=== PATIENT | male | born 1965 | race Caucasian/White ===

== ENCOUNTER 2016-04-28 12:53 | Emergency (ER) | payer MEDICARE ==
--- NOTE | 2016-04-28 13:41 | ER Document Report ---
ED General - General Chief Complaint: Ankle Injury Stated Complaint: ANKLE PAIN Mode of Arrival: Medic Information source: Patient Notes: 51-year-old male presents with complaints of ankle pain after she tripped last night. Patient denies any neurological deficits was able to ambulate initially but now admits that it hurts. Tetanus is up-to-date TRAVEL OUTSIDE OF THE [place] IN LAST 30 DAYS: No - HPI Onset: Just prior to arrival Onset/Duration: Sudden Quality of pain: Achy Severity: Mild Pain Level: 1 Associated symptoms: Other Exacerbated by: Movement, Walking Relieved by: Denies Similar symptoms previously: No Recently seen / treated by doctor: No - Related Data Allergies/Adverse Reactions: hydrocodone bitartrate [From Vicodin] Allergy (Verified 04/28/16 12:54) Penicillins Allergy (Verified 04/28/16 12:54) Past Medical History - Social History Smoking Status: Never Smoker Cigarette use (# per day): No Chew tobacco use (# tins/day): No Smoking Education Provided: No Family History: Reviewed & Not Pertinent - Past Medical History Cardiac Medical History: Reports: Hx Heart Attack, Hx Hypercholesterolemia, Hx Hypertension Neurological Medical History: Reports: Hx Cerebrovascular Accident, Hx Seizures Endocrine Medical History: Reports: Hx Diabetes Mellitus Type 2 Psychiatric Medical History: Reports: Hx Depression Past Surgical History: Reports: Hx Cholecystectomy, Hx Oral Surgery, Hx Orthopedic Surgery - right knee, left foot, back - Immunizations Hx Diphtheria, Pertussis, Tetanus Vaccination: Yes Review of Systems - Review of Systems Notes: REVIEW OF SYSTEMS: CONSTITUTIONAL : Denies fever, chills, or sweats. Denies recent illness. EENT: Denies eye, ear, throat, or mouth pain or symptoms. Denies nasal or sinus congestion or discharge. Denies throat, tongue, or mouth swelling or difficulty swallowing. CARDIOVASCULAR: Denies chest pain. Denies palpitations or racing or irregular heart beat. Denies ankle edema. RESPIRATORY: Denies cough, cold, or chest congestion. Denies shortness of breath, difficulty breathing, or wheezing. GASTROINTESTINAL: Denies abdominal pain or distention. Denies nausea, vomiting , or diarrhea. Denies blood in vomitus, stools, or per rectum. Denies black, tarry stools. Denies constipation. GENITOURINARY: Denies difficulty urinating, painful urination, burning, frequency, blood in urine, or discharge. MUSCULOSKELETAL: Admits to right ankle pain SKIN: Denies rash, lesions or sores. HEMATOLOGIC : Denies easy bruising or bleeding. LYMPHATIC: Denies swollen, enlarged glands. NEUROLOGICAL: Denies confusion or altered mental status. Denies passing out or loss of consciousness. Denies dizziness or lightheadedness. Denies headache. Denies weakness or paralysis or loss of use of either side. Denies problems with gait or speech. Denies sensory loss, numbness, or tingling. Denies seizures. PSYCHIATRIC: Denies anxiety or stress. Denies depression, suicidal ideation, or homicidal ideation. ALL OTHER SYSTEMS REVIEWED AND NEGATIVE. Dictation was performed using [employer] voice recognition software PHYSICAL EXAMINATION: GENERAL: Well-appearing, well-nourished and in no acute distress. HEAD: Atraumatic, normocephalic. EYES: Pupils equal round extraocular movements intact, conjunctiva are normal. ENT: Nares patent NECK: Normal range of motion LUNGS: No respiratory distress Musculoskeletal: Normal range of motion NEUROLOGICAL: Normal speech, normal gait. PSYCH: Normal mood, normal affect. SKIN: Extremely superficial abrasion noted on the lateral malleolus of the right ankle there is no deformity no step-off no obvious other injuries Course - Re-evaluation Re-evalutation: 04/28/16 14:16 X-ray noted no acute abnormality patient is stable for discharge tetanus is up- to-date After performing a Medical Screening Examination, I estimate there is LOW risk for INTRACRANIAL HEMORRHAGE, UNSTABLE SPINE FRACTURE, CENTRAL CORD SYNDROME, CAUDA EQUINA, THORACIC AORTIC DISSECTION, PNEUMOTHORAX, PERFORATED BOWEL, RUPTURED ABDOMINAL AORTIC ANEURYSM, ACUTE TENDON RUPTURE, COMPARTMENT SYNDROME, or OPEN FRACTURE, thus I consider the discharge disposition reasonable. Also, there is no evidence or peritonitis, sepsis, or toxicity. The patient and I have discussed the diagnosis and risks, and we agree with discharging home to follow-up with their primary doctor with the understanding that symptoms and presentations can change. We also discussed returning to the Emergency Department immediately if new or worsening symptoms occur. We have discussed the symptoms which are most concerning (e.g., bloody stool, fever, changing or worsening pain, vomiting) that necessitate immediate return. - Diagnostic Test Radiology reviewed: Image reviewed, Reports reviewed - No acute abnormality Discharge - Discharge Clinical Impression: Skin abrasion Ankle injury Qualifiers: Encounter type: initial encounter Laterality: right Qualified Code(s): S99.911A - Unspecified injury of right ankle, initial encounter Condition: Stable Disposition: HOME, SELF-CARE Instructions: Sprained Ankle ([facility]) Referrals: MILADIS DE LEON MD [Primary Care Provider] - Follow up tomorrow
[2016-04-28 16:20] VITALS: BP 103/81
== END 2016-04-28 14:42 | disposition home or self-care (01) ==
LOC: ER 12:53
DX: S99.911A Unspecified injury of right ankle, initial encounter (principal); S90.511A Abrasion, right ankle, initial encounter; W18.40XA Slipping, tripping and stumbling without falling, unspecified, initial encounter; E78.00 Pure hypercholesterolemia, unspecified; I10 Essential (primary) hypertension; E11.9 Type 2 diabetes mellitus without complications; Z86.73 Personal history of transient ischemic attack (TIA), and cerebral infarction without residual deficits; Z88.6 Allergy status to analgesic agent; Z88.0 Allergy status to penicillin; Z90.49 Acquired absence of other specified parts of digestive tract; I25.2 Old myocardial infarction
CPT/HCPCS: 99283

== ENCOUNTER 2016-08-24 18:10 | Emergency (ER) | payer MEDICARE ==
--- NOTE | 2016-08-24 22:37 | ER Document Report ---
ED GI/ - General Stated Complaint: TESTICULAR PAIN Time Seen by Provider: 08/24/16 22:32 Mode of Arrival: Ambulatory Information source: Patient TRAVEL OUTSIDE OF THE [place] IN LAST 30 DAYS: No - HPI Notes: 08/25/16 00:40 This is a 51-year-old male with history of leukemia and diabetes who presents with left testicular pain for approximately 3 days. This started a couple hours after lifting a heavy mattress. He did not have immediate pain with this. It is sharp pain and is in the region of the left testicle. He feels some mild enlargement of it as well. Denies abdominal pain nausea vomiting dysuria hematuria flank or back discomfort with this. No penile discharge. Direct trauma as well. - Related Data Allergies/Adverse Reactions: hydrocodone bitartrate [From Vicodin] Allergy (Verified 04/28/16 12:54) Penicillins Allergy (Verified 04/28/16 12:54) Past Medical History - Social History Smoking Status: Unknown if Ever Smoked Drug Abuse: None Family History: Reviewed & Not Pertinent - Past Medical History Cardiac Medical History: Reports: Hx Heart Attack, Hx Hypercholesterolemia, Hx Hypertension Neurological Medical History: Reports: Hx Cerebrovascular Accident, Hx Seizures Endocrine Medical History: Reports: Hx Diabetes Mellitus Type 2 Renal/ Medical History: Denies: Hx Epididymitis, Hx Testicular Torsion Psychiatric Medical History: Reports: Hx Depression Past Surgical History: Reports: Hx Cholecystectomy, Hx Oral Surgery, Hx Orthopedic Surgery - right knee, left foot, back - Immunizations Hx Diphtheria, Pertussis, Tetanus Vaccination: Yes Review of Systems - Review of Systems -: Yes All other systems reviewed and negative Physical Exam - Vital signs Interpretation: Normal - Notes Notes: GENERAL: VS as per nursing doc. Well-appearing, well-nourished and in no acute distress. HEAD: Atraumatic, normocephalic. EYES: Sclera anicteric, no conjunctival injection or discharge. ENT: Moist mucous membranes. NECK: Supple LUNGS: Breath sounds clear to auscultation bilaterally and equal. No wheezes rales or rhonchi. HEART: Regular rate and rhythm without murmurs. ABDOMEN: Soft, non-tender. No penile discharge noted. Circumcised. No testicular tenderness or mass noted. Slight fullness bilaterally. There is tenderness with the patient standing and bearing down in the inguinal canal but there is no obvious hernia or bulging noted BACK: No CVA tenderness. EXTREMITIES: No edema. NEUROLOGICAL: Gait intact, no gross abnormality. PSYCH: Normal mood, normal affect. SKIN: Warm, dry, normal turgor, no lesions noted. Course - Re-evaluation Re-evalutation: 08/24/16 22:36 Due to computer downtime lab results are not in the chart. CBC is significant for a normal white count 9.3 otherwise normal. Urinalysis is pending. Patient is currently in ultrasound. 08/25/16 00:37 Urinalysis was essentially negative except for glucose. Recommended the patient check his glucose often and up with his primary care physician. He is currently on insulin. Ultrasound showed small bilateral hydroceles. Discussed light lifting with him for 1 week in follow-up, returning if he has increasing problems or develops a lump there at the time of examination he has tenderness at the inguinal canal but there is no sign of hernia. - Laboratory Result Diagrams: 08/24/16 20:15 Discharge - Discharge Clinical Impression: Testicle pain Condition: Good Disposition: HOME, SELF-CARE Additional Instructions: Light lifting for the next week or if causing pain. Use ibuprofen or Aleve for discomfort. Contact your physician for follow-up in the next 2-3 days.
[2016-08-24] MEDS ORDERED: OXYCODONE-ACETAMINOPHEN 5-325 MG TABLET PO ONE (23:41)
[2016-08-25] MEDS ORDERED: IBUPROFEN 800 MG TABLET PO ONE (01:52)
[2016-08-25 10:06] LABS: ABSOLUTE BASOPHILS # (AUTO) 0.1 10^3/uL (0.0-0.2); ABSOLUTE EOSINOPHILS # (AUTO) 0.2 10^3/uL (0.0-0.6); ABSOLUTE LYMPHOCYTES (AUTO) 3.6 10^3/uL (0.5-4.7); ABSOLUTE MONOCYTES (AUTO) 0.7 10^3/uL (0.1-1.4); ABSOLUTE NEUT (AUTO) 4.8 10^3/uL (1.7-8.2); BASOPHILS % (AUTO) 0.6 % (0-2); EOSINOPHILS % (AUTO) 2.4 % (0-6); HEMATOCRIT 48.4 % (37.9-51.0); HEMOGLOBIN 16.4 g/dL (13.5-17.0); HGB HCT DIFFERENCE 0.8; LYMPHOCYTES % (AUTO) 38.6 % (13-45); MEAN CORPUSCULAR HEMOGLOBIN 29.5 pg (27.0-33.4); MEAN CORPUSCULAR HGB CONC 33.8 g/dL (32.0-36.0); MEAN CORPUSCULAR VOLUME 87 fl (80-97); MONOCYTES % (AUTO) 7.2 % (3-13); RED BLOOD COUNT 5.55 10^6/uL (4.35-5.55); RED CELL DISTRIBUTION WIDTH 13.1 % (11.5-14.0); SEGMENTED NEUTROPHILS % (AUTO) 51.2 % (42-78); WHITE BLOOD COUNT 9.3 10^3/uL (4.0-10.5)
[2016-08-25 14:29] LABS: APPEARANCE,URINE CLEAR; BILIRUBIN,URINE NEGATIVE (NEGATIVE); GLUCOSE, URINE >=500 mg/dL (NEGATIVE); KETONES,URINE NEGATIVE (NEGATIVE); LEUKOCYTE ESTERASE,URINE NEGATIVE (NEGATIVE); NITRITE,URINE NEGATIVE (NEGATIVE); PROTEIN,URINE NEGATIVE (NEGATIVE); URINE SPECIFIC GRAVITY 1.027; UROBILINOGEN,URINE NEGATIVE mg/dL (<2.0)
== END 2016-08-25 01:16 | disposition home or self-care (01) ==
LOC: ER 18:10
DX: N50.812 Left testicular pain (principal); E78.00 Pure hypercholesterolemia, unspecified; I10 Essential (primary) hypertension; E11.9 Type 2 diabetes mellitus without complications; I25.2 Old myocardial infarction; Z88.0 Allergy status to penicillin; Z88.6 Allergy status to analgesic agent; Z79.4 Long term (current) use of insulin; Z86.73 Personal history of transient ischemic attack (TIA), and cerebral infarction without residual deficits; Z90.49 Acquired absence of other specified parts of digestive tract; Z85.6 Personal history of leukemia
CPT/HCPCS: 99284; 36415; 87086; 85025; 81001; 76870; 93976; A9270 ×2

== ENCOUNTER 2016-11-05 17:03 | Emergency (ER) | payer MEDICARE, MEDICAID ==
[2016-11-05] MEDS ORDERED: OXYCODONE-ACETAMINOPHEN 5-325 MG TABLET PO ONE (17:48)
--- NOTE | 2016-11-05 17:56 | ER Document Report ---
ED Headache - General Chief Complaint: Neck Problem Stated Complaint: NECK PAIN Time Seen by Provider: 11/05/16 17:36 Notes: 51 yo male with hx/o Leukemia, DM, CHF, epilepsy c/o acute onset of sharp, "electrical" pains in right side of head since last night. "shooting pains almost drop me to my knees". + dizziness with pain. no fever, no n/v, no chest pain or shortness of breath. no previous similar pain. no rash TRAVEL OUTSIDE OF THE [place] IN LAST 30 DAYS: No - HPI Onset: Yesterday Timing: Still present Quality of pain: Sharp Associated symptoms: Neck pain. denies: Nausea/vomiting, Stiff neck Similar symptoms previously: No - Related Data Allergies/Adverse Reactions: hydrocodone bitartrate [From Vicodin] Allergy (Verified 11/05/16 17:08) Penicillins Allergy (Verified 11/05/16 17:08) Past Medical History - General Information source: Patient - Social History Smoking Status: Current Every Day Smoker Cigarette use (# per day): Yes - 1ppd Frequency of alcohol use: None Drug Abuse: None Lives with: Spouse/Significant other Family History: Reviewed & Not Pertinent - Past Medical History Cardiac Medical History: Reports: Hx Heart Attack, Hx Hypercholesterolemia, Hx Hypertension Neurological Medical History: Reports: Hx Cerebrovascular Accident, Hx Seizures Endocrine Medical History: Reports: Hx Diabetes Mellitus Type 2 Renal/ Medical History: Denies: Hx Epididymitis, Hx Peritoneal Dialysis, Hx Testicular Torsion Psychiatric Medical History: Reports: Hx Depression Past Surgical History: Reports: Hx Cholecystectomy, Hx Oral Surgery, Hx Orthopedic Surgery - right knee, left foot, back - Immunizations Hx Diphtheria, Pertussis, Tetanus Vaccination: Yes Review of Systems - Review of Systems Constitutional: No symptoms reported EENT: No symptoms reported Cardiovascular: No symptoms reported Respiratory: No symptoms reported Gastrointestinal: No symptoms reported Genitourinary: No symptoms reported Male Genitourinary: No symptoms reported Musculoskeletal: No symptoms reported Skin: No symptoms reported Hematologic/Lymphatic: No symptoms reported Neurological/Psychological: See HPI Physical Exam - Vital signs Vitals: Temp Pulse Resp BP Pulse Ox 97.6 F 95 16 116/71 94 11/05/16 17:10 11/05/16 17:10 11/05/16 17:10 11/05/16 17:10 11/05/16 17:10 Interpretation: Normal - General General appearance: Appears well, Alert In distress: None - HEENT Head: Normocephalic, Atraumatic Eyes: Normal Conjunctiva: Normal Extraocular movements intact: Yes Pupils: PERRL Tympanic membrane: Normal Mucous membranes: Moist Pharynx: Normal Neck: Supple, Other - + right suboccipital trapezius tenderness. no cervical pain.. No: Lymphadenopathy, Meningismus - Respiratory Respiratory status: No respiratory distress Chest status: Nontender Breath sounds: Normal Chest palpation: Normal - Cardiovascular Rhythm: Regular Heart sounds: Normal auscultation Murmur: No - Abdominal Inspection: Normal Distension: No distension Bowel sounds: Normal Tenderness: Nontender Organomegaly: No organomegaly - Back Back: Normal, Nontender - Extremities General upper extremity: Normal inspection, Nontender, Normal color, Normal ROM , Normal temperature General lower extremity: Normal inspection, Nontender, Normal color, Normal ROM , Normal temperature, Normal weight bearing. No: Akosua's sign - Neurological Neuro grossly intact: Yes Cognition: Normal Orientation: AAOx4 Roseanne Coma Scale Eye Opening: Spontaneous [place] Coma Scale Verbal: Oriented Roseanne Coma Scale Motor: Obeys Commands [place] Coma Scale Total: 15 Speech: Normal Motor strength normal: LUE, RUE, LLE, RLE Sensory: Normal - Psychological Associated symptoms: Normal affect, Normal mood - Skin Skin Temperature: Warm Skin Moisture: Dry Skin Color: Normal Course - Re-evaluation Re-evalutation: 11/05/16 19:[address] negative. results reviewed with patient. low suspicion of stroke, TIA , meningitis. pt is neurologically intact and no focal deficits. will treat with short course of pain medication and close follow up with primary care. pt agreeable with plan and stable for discharge - Vital Signs Vital signs: Temp Pulse Resp BP Pulse Ox 97.6 F 95 16 116/71 94 11/05/16 17:10 11/05/16 17:10 11/05/16 17:10 11/05/16 17:10 11/05/16 17:10 Discharge - Discharge Clinical Impression: Headache Qualifiers: Headache type: unspecified Headache chronicity pattern: acute headache Intractability: not intractable Qualified Code(s): R51 - Headache Condition: Stable Disposition: HOME, SELF-CARE Instructions: Headache ([facility]), Oral Narcotic Medication ([facility]) Additional Instructions: Your head CT is negative today Take pain medication as needed and follow up with your primary care if pain persists Return to ER for any worsening Prescriptions: Oxycodone HCl/Acetaminophen [Percocet 5-325 mg Tablet] 1 tab PO ASDIR PRN #15 tablet PRN Reason:
--- NOTE | 2016-11-05 18:26 | RADIOLOGY REPORT (SQ) ---
EXAM DESCRIPTION: CT HEAD WITHOUT COMPLETED DATE/TIME: 11/05/2016 6:10 pm REASON FOR STUDY: pain in right side of head, hx Leukemia COMPARISON: None. TECHNIQUE: Axial images acquired through the brain without intravenous contrast. Images reviewed wi th bone, brain and subdural windows. Images stored on PACS. All CT scanners at this facility use dose modulation, iterative reconstruction, and/or weight based d osing when appropriate to reduce radiation dose to as low as reasonably achievable (ALARA). [facility]: Dose Right [facility]: CareDose [facility]: Dose Right [facility]: Teradose 4D [facility]: Lucidity ([employer]) RADIATION DOSE: Up-to-date CT equipment and radiation dose reduction techniques were employed. CTDIv ol: 64.6 mGy. DLP: 1163 mGy-cm. mGy. LIMITATIONS: None. FINDINGS: VENTRICLES: Normal size and contour. CEREBRUM: No masses. No hemorrhage. No midline shift. Normal cano/white matter differentiation. N o evidence for acute infarction. CEREBELLUM: No masses. No hemorrhage. No alteration of density. No evidence for acute infarction. EXTRAAXIAL SPACES: No fluid collections. No masses. ORBITS AND GLOBE: No intra- or extraconal masses. Normal contour of globe without masses. CALVARIUM: No fracture. PARANASAL SINUSES: No fluid or mucosal thickening. SOFT TISSUES: No mass or hematoma. OTHER: No other significant finding. IMPRESSION: NORMAL BRAIN CT WITHOUT CONTRAST. TECHNICAL DOCUMENTATION: JOB ID: [id number] Quality ID # [id number]: Final reports with documentation of one or more dose reduction techniques (e.g., Au tomated exposure control, adjustment of the mA and/or kV according to patient size, use of iterative reconstruction technique) 2010 [employer]- All Rights Reserved
[2016-11-05 22:15] VITALS: BP 113/72
== END 2016-11-05 19:52 | disposition home or self-care (01) ==
LOC: ER 17:03
DX: R51 Headache (principal); M54.2 Cervicalgia; R42 Dizziness and giddiness; F17.210 Nicotine dependence, cigarettes, uncomplicated
CPT/HCPCS: 99284; 70450; A9270

== ENCOUNTER 2016-12-29 15:00 | Observation (INO) | payer MEDICARE ==
--- NOTE | 2016-12-29 15:17 | ER Document Report ---
ED General - General Mode of Arrival: Ambulatory Information source: Patient TRAVEL OUTSIDE OF THE [place] IN LAST 30 DAYS: No <ROCAEL CAMPOVERDE - Last Filed: 12/29/16 17:32> <JEN NORRIS - Last Filed: 12/29/16 17:39> - General Stated Complaint: CHEST PAIN Time Seen by Provider: 12/29/16 15:09 Notes: Patient is a 51-year-old male that presents to the emergency department today with complaints of chest pain. Patient states his chest pain began today while cutting the grass. Patient describes this chest pain as a "piece of hot steel sticking through him". Patient states that he went inside into the air conditioning for approximately 10 minutes and the pain subsided. Patient states that he has had a similar pain for approximately 3 months but it seems to only be exertional. Patient complains of shortness of breath and lightheadedness. Patient denies any nausea, vomiting, or syncope. Patient had an MD in 2012. ( ROCAEL CAMPOVERDE) - Related Data Allergies/Adverse Reactions: hydrocodone bitartrate [From Vicodin] Allergy (Verified 11/05/16 17:08) Penicillins Allergy (Verified 11/05/16 17:08) Past Medical History - General Information source: Patient - Social History Smoking Status: Current Every Day Smoker Cigarette use (# per day): Yes Frequency of alcohol use: None Drug Abuse: None Lives with: Family Family History: Reviewed & Not Pertinent - Past Medical History Cardiac Medical History: Reports: Hx Heart Attack, Hx Hypercholesterolemia, Hx Hypertension Neurological Medical History: Reports: Hx Cerebrovascular Accident, Hx Seizures Endocrine Medical History: Reports: Hx Diabetes Mellitus Type 2 Psychiatric Medical History: Reports: Hx Depression Past Surgical History: Reports: Hx Cholecystectomy, Hx Oral Surgery, Hx Orthopedic Surgery - right knee, left foot, back - Immunizations Hx Diphtheria, Pertussis, Tetanus Vaccination: Yes <ROCAEL CAMPOVERDE - Last Filed: 12/29/16 17:32> Review of Systems - Review of Systems Constitutional: No symptoms reported EENT: No symptoms reported Cardiovascular: See HPI, Chest pain, Lightheaded. denies: Syncope Respiratory: See HPI, Short of breath Gastrointestinal: denies: Nausea, Vomiting Genitourinary: No symptoms reported Male Genitourinary: No symptoms reported Musculoskeletal: No symptoms reported Skin: No symptoms reported Hematologic/Lymphatic: No symptoms reported Neurological/Psychological: No symptoms reported -: Yes All other systems reviewed and negative <NIRALIROCAEL - Last Filed: 12/29/16 17:32> Physical Exam <ROCAEL CAMPOVERDE - Last Filed: 12/29/16 17:32> <JEN NORRIS - Last Filed: 12/29/16 17:39> - Vital signs Vitals: Resp 15 12/29/16 15:15 - Notes Notes: Physical Exam: General: Alert, appears well. HEENT: Normocephalic. Atraumatic. PERRL. Extraocular movements intact. Oropharynx clear. Neck: Supple. Non-tender. Respiratory: No respiratory distress. Coarse breath sounds bilaterally. Cardiovascular: Regular rate and rhythm. Abdominal: Epigastric tenderness with palpation. No distension. Normal Bowel Sounds. Back: Non-tender. No deformity or step off. Extremities: Moves all four extremities. Upper extremities: Normal inspection. Normal ROM. Lower extremities: Normal inspection. No edema. Normal ROM. Neurological: Normal cognition. AAOx4. Normal speech. Psychological: Normal affect. Normal Mood. Skin: Warm. Dry. Normal color. (ROCAEL CAMPOVERDE) Course - Laboratory Result Diagrams: 12/29/16 15:39 12/29/16 15:39 <ROCAEL CAMPOVERDE - Last Filed: 12/29/16 17:32> - Laboratory Result Diagrams: 12/29/16 15:39 12/29/16 15:39 - Diagnostic Test Radiology reviewed: Image reviewed, Reports reviewed - Per Dr. Cloud, no DVT. - EKG Interpretation by [facility] EKG shows normal: Sinus rhythm - Normal sinus rhythm, rate 96, inferior Q waves noted. Normal QRS duration. EKG appears consistent with February 12, 2016 EKG <JEN NORRIS - Last Filed: 12/29/16 17:39> - Re-evaluation Re-evalutation: 12/29/16 17:17 Patient currently pain-free. Dr. Morgan agrees to admit patient for chest pain rule out. (ROCAEL CAMPOVERDE) 12/29/16 15:24 Patient currently pain-free. Has Nitropaste on. No recent traumatic neck injury. (JEN NORRIS) - Vital Signs Vital signs: Temp Pulse Resp BP Pulse Ox 98 F 98 15 124/76 95 12/29/16 15:21 12/29/16 15:21 12/29/16 17:01 12/29/16 17:00 12/29/16 15:27 - Laboratory Laboratory results interpreted by me: 12/29/16 15:39 Sodium 135.4 L Glucose 286 H Discharge <ROCAEL CAMPOVERDE - Last Filed: 12/29/16 17:32> - Discharge Admitting Provider: Dr. Morgan Unit Admitted: Telemetry <JEN NORRIS - Last Filed: 12/29/16 17:39> - Discharge Clinical Impression: Chest pain, Hyperglycemia Clinical Impression: (Ruled Out): Cellulitis of right lower extremity Condition: Good Disposition: ADMITTED OBSERVATION Referrals: MILADIS DE LEON MD [Primary Care Provider] - Follow up as needed Scribe Attestation: 12/29/16 17:36 I personally performed the services described in the documentation, reviewed and edited the documentation which was dictated to the scribe in my presence, and it accurately records my words and actions. (JEN NORRIS) Scribe Documentation - Scribe Written by Sathishe:: Felice Camara, 12/29/2016 1731 acting as scribe for :: Yue <ROCAEL CAMPOVERDE - Last Filed: 12/29/16 17:32>
[2016-12-29 15:51] LABS: ABSOLUTE BASOPHILS # (AUTO) 0.1 10^3/uL (0.0-0.2); ABSOLUTE EOSINOPHILS # (AUTO) 0.2 10^3/uL (0.0-0.6); ABSOLUTE LYMPHOCYTES (AUTO) 2.3 10^3/uL (0.5-4.7); ABSOLUTE MONOCYTES (AUTO) 0.5 10^3/uL (0.1-1.4); ABSOLUTE NEUT (AUTO) 4.4 10^3/uL (1.7-8.2); EOSINOPHILS % (AUTO) 2.7 % (0-6); HEMATOCRIT 42.6 % (37.9-51.0); HEMOGLOBIN 15.3 g/dL (13.5-17.0); HGB HCT DIFFERENCE 3.3; LYMPHOCYTES % (AUTO) 31.2 % (13-45); MEAN CORPUSCULAR HEMOGLOBIN 30.7 pg (27.0-33.4); MEAN CORPUSCULAR VOLUME 85 fl (80-97); MONOCYTES % (AUTO) 6.8 % (3-13); RED BLOOD COUNT 4.99 10^6/uL (4.35-5.55); RED CELL DISTRIBUTION WIDTH 13.1 % (11.5-14.0); SEGMENTED NEUTROPHILS % (AUTO) 58.3 % (42-78); WHITE BLOOD COUNT 7.5 10^3/uL (4.0-10.5)
[2016-12-29 16:07] LABS: ALANINE AMINOTRANSFERASE 50 U/L (21-72); ALBUMIN 3.9 g/dL (3.5-5.0); ALKALINE PHOSPHATASE 63 U/L (38-126); ANION GAP 11 (5-19); ASPARTATE AMINO TRANSFERASE 27 U/L (17-59); BILIRUBIN,DIRECT 0.4 mg/dL (0.0-0.4); BILIRUBIN,TOTAL 0.4 mg/dL (0.2-1.3); BLOOD UREA NITROGEN 11 mg/dL (7-20); CALCIUM 9.6 mg/dL (8.4-10.2); CARBON DIOXIDE 23 mmol/L (22-30); CHLORIDE 101 mmol/L (98-107); CREATINE KINASE 86 U/L (55-170); CREATININE RESULT 0.61 mg/dL (0.52-1.25); GLUCOSE 286 mg/dL (75-110); SODIUM 135.4 mmol/L (137-145); TOTAL PROTEIN 6.3 g/dL (6.3-8.2)
[2016-12-29 16:18] LABS: CREATINE KINASE MB 0.88 ng/mL (<4.55); TROPONIN I 0.024 ng/mL
--- NOTE | 2016-12-29 16:47 | RADIOLOGY REPORT (SQ) ---
EXAM DESCRIPTION: CERV SP 4 OR 5 VIEWS COMPLETED DATE/TIME: 12/29/2016 4:11 pm REASON FOR STUDY: Pain, Neck Trauma COMPARISON: 12/24/2011 cervical spine plain films NUMBER OF VIEWS: Five views. TECHNIQUE: AP, lateral, obliques and odontoid radiographic images acquired of the cervical spine. LIMITATIONS: None. FINDINGS: MINERALIZATION: Normal. ALIGNMENT: Anatomic. VERTEBRAE: Vertebral bodies of normal height. DISCS: Very mild anterior osteophyte formation at C4-5, C5-6, and C6-7. No significant disc space lo ss of height. FORAMINA: Minimal bilateral foraminal narrowing at C4-5, and C5-6. LATERAL AND POSTERIOR ELEMENTS: Facets, lateral masses and spinous processes without significant find ings. HARDWARE: None in the spine. SOFT TISSUES: Carotid bifurcation calcifications. OTHER: No other significant finding. IMPRESSION: No acute changes TECHNICAL DOCUMENTATION: JOB ID: [id number] [employer]- All Rights Reserved
--- NOTE | 2016-12-29 16:47 | RADIOLOGY REPORT (SQ) ---
EXAM DESCRIPTION: CHEST PA/LAT COMPLETED DATE/TIME: 12/29/2016 4:11 pm REASON FOR STUDY: Pain, Neck Trauma COMPARISON: 02/12/2016 EXAM PARAMETERS: NUMBER OF VIEWS: two views TECHNIQUE: Digital Frontal and Lateral radiographic views of the chest acquired. RADIATION DOSE: NA LIMITATIONS: none FINDINGS: LUNGS AND PLEURA: No opacities, masses or pneumothorax. No pleural effusion. MEDIASTINUM AND HILAR STRUCTURES: No masses or contour abnormalities. HEART AND VASCULAR STRUCTURES: Heart normal size. No evidence for failure. BONES: No acute findings. HARDWARE: None in the chest. OTHER: No other significant finding. IMPRESSION: NO SIGNIFICANT RADIOGRAPHIC FINDING IN THE CHEST. TECHNICAL DOCUMENTATION: JOB ID: [id number] [employer]- All Rights Reserved
[2016-12-29] MEDS ORDERED: ACETAMINOPHEN 325 MG TABLET PO PRN (18:14)
[2016-12-29] MEDS ORDERED: ONDANSETRON HCL INJ/PF 4 MG/2 ML SDV IV PRN (18:20)
[2016-12-29] MEDS ORDERED: NITROGLYCERIN 0.4 MG/TAB 25 TAB/BOTTLE SL PRN (18:23)
[2016-12-29] MEDS ORDERED: DEXTROSE 50%-WATER 25 GM/50 ML DISP.SYRIN IV PRN ×2 (18:26)
[2016-12-29] MEDS ORDERED: DEXTROSE 40% GEL 15 GM TUBE PO PRN ×2 (18:26)
[2016-12-29] MEDS ORDERED: GLUCAGON,HUMAN RECOMB 1 MG INJ IM PRN (18:26)
--- NOTE | 2016-12-29 18:32 | EKG REPORT ---
SEVERITY:- ABNORMAL ECG - SINUS RHYTHM INFERIOR INFARCT, AGE INDETERMINATE : Confirmed by: Pradip Chapman MD 29-Dec-2016 18:31:56
--- NOTE | 2016-12-29 18:41 | PDOC H&P ---
History of Present Illness Admission Date/PCP: 12/29/16 18:17 MILADIS DE LEON MD Patient complains of: Chest pain History of Present Illness: JEN CHRIS is a 51 year old male, with diabetes mellitus as well as hypertension and hyperlipidemia and prior history of HI last stress test was about 3 years ago came to the emergency room because of 3 months of recurrent chest pain. Pain is located on the left side nonradiating with associated mild shortness of breath. There is no palpitation dizziness nor chills nor fever. Likewise there is no associated cough. No nausea or vomiting as well. It will occur mainly with activity. The patient will stop and eventually the discomfort will resolve. The pain is reproducible on the left chest wall. While doing yard work today, the pain recurred again and this time it was not relieved by rest, the ambulance was called, and was given nitroglycerin the pain started to ease off. The patient was then referred for admission. Past Medical History Past Medical History: Medication reconciliation pending verification from the patient's pharmacist. Cardiac Medical History: Reports: Myocardial Infarction, Hyperlipidema, Hypertension Neurological Medical History: Reports: Seizures Endocrine Medical History: Reports: Diabetes Mellitus Type 2 Psychiatric Medical History: Reports: Depression Past Surgical History Past Surgical History: Reports: Cholecystectomy, Orthopedic Surgery - right knee , left foot, back Social History Information Source: Patient Lives with: Family Smoking Status: Current Every Day Smoker Frequency of Alcohol Use: None Hx Recreational Drug Use: No Drugs: None Hx Prescription Drug Abuse: No Family History Family History: DM, Hypertension Parental Family History Reviewed: Yes Children Family History Reviewed: Yes Sibling(s) Family History Reviewed.: Yes Medication/Allergy Allergies/Adverse Reactions: hydrocodone bitartrate [From Vicodin] Allergy (Verified 11/05/16 17:08) Penicillins Allergy (Verified 11/05/16 17:08) Review of Systems Constitutional: ABSENT: chills, fever(s), headache(s), weight gain, weight loss Eyes: ABSENT: visual disturbances Ears: ABSENT: hearing changes Nose, Mouth, and Throat: ABSENT: mouth pain, sore throat Cardiovascular: PRESENT: chest pain. ABSENT: dyspnea on exertion, edema, orthropnea, palpitations Respiratory: PRESENT: dyspnea. ABSENT: cough, hemoptysis Gastrointestinal: ABSENT: abdominal pain, constipation, diarrhea, hematemesis, hematochezia, melena, nausea, vomiting Genitourinary: ABSENT: dysuria, hematuria Musculoskeletal: ABSENT: joint swelling Integumentary: ABSENT: rash, wounds Neurological: ABSENT: abnormal gait, abnormal speech, confusion, dizziness, focal weakness, syncope Psychiatric: ABSENT: anxiety, depression, homidical ideation, suicidal ideation Endocrine: ABSENT: cold intolerance, heat intolerance, polydipsia, polyphagia, polyuria Hematologic/Lymphatic: ABSENT: easy bleeding, easy bruising Physical Exam Vital Signs: Temp Pulse Resp BP Pulse Ox 98 F 98 14 162/96 H 95 12/29/16 15:21 12/29/16 15:21 12/29/16 17:31 12/29/16 17:31 12/29/16 15:27 General appearance: PRESENT: no acute distress, cooperative, other - Overweight Head exam: PRESENT: atraumatic, normocephalic Eye exam: PRESENT: conjunctiva pink, EOMI, PERRLA. ABSENT: scleral icterus Ear exam: PRESENT: normal external ear exam Mouth exam: PRESENT: moist, tongue midline Neck exam: ABSENT: carotid bruit, JVD, lymphadenopathy, thyromegaly Respiratory exam: PRESENT: clear to auscultation harsh. ABSENT: rales, rhonchi, wheezes Cardiovascular exam: PRESENT: RRR. ABSENT: diastolic murmur, rubs, systolic murmur Pulses: PRESENT: normal dorsalis pedis pul Vascular exam: PRESENT: normal capillary refill GI/Abdominal exam: PRESENT: normal bowel sounds, soft. ABSENT: distended, guarding, mass, organolmegaly, rebound, tenderness Rectal exam: PRESENT: deferred Extremities exam: PRESENT: full ROM, other - Trace pretibial edema. ABSENT: calf tenderness, clubbing Neurological exam: PRESENT: alert, awake, oriented to person, oriented to place , oriented to time, oriented to situation, CN II-XII grossly intact. ABSENT: motor sensory deficit Psychiatric exam: PRESENT: appropriate affect, normal mood. ABSENT: homicidal ideation, suicidal ideation Skin exam: PRESENT: dry, intact, warm. ABSENT: cyanosis, rash Results Impressions: Cervical Spine X-Ray 12/29/16 15:17 IMPRESSION: No acute changes Chest X-Ray 12/29/16 15:17 IMPRESSION: NO SIGNIFICANT RADIOGRAPHIC FINDING IN THE CHEST. Assessment & Plan - Diagnosis (1) Chest pain Qualifiers: Chest pain type: unspecified Qualified Code(s): R07.9 - Chest pain, unspecified Is this a current diagnosis for this admission?: Yes (2) Coronary artery disease Qualifiers: Coronary Disease-Associated Artery/Lesion type: [place] artery [place] vs. transplanted heart: [place] heart Associated angina: angina presence unspecified Qualified Code(s): I25.10 - Atherosclerotic heart disease of [place] coronary artery without angina pectoris Is this a current diagnosis for this admission?: Yes (3) Essential hypertension Is this a current diagnosis for this admission?: Yes (4) Hyperlipidemia Qualifiers: Hyperlipidemia type: unspecified Qualified Code(s): E78.5 - Hyperlipidemia , unspecified Is this a current diagnosis for this admission?: Yes (5) Diabetes mellitus type 2 in obese Is this a current diagnosis for this admission?: Yes (6) History of depression Is this a current diagnosis for this admission?: Yes (7) History of stroke Is this a current diagnosis for this admission?: Yes (8) History of seizure Is this a current diagnosis for this admission?: Yes - Time Time Spent: 50 to 70 Minutes - Plan Summary Plan Summary: The patient will be admitted to observation. Serial cardiac enzymes will be obtained and if negative we will proceed with a stress test. We will consult cardiology for further evaluation. In the meantime I will put the patient on aspirin and Plavix. I will likewise begin nitroglycerin. Supplemental oxygen will be given and DVT prophylaxis with Lovenox will be placed. Further testing depends on initial evaluation as outlined above.
--- NOTE | 2016-12-29 19:56 | PDOC CONSULTATION ---
Consultation Consult Date: 12/29/16 Attending physician:: TITO CONNELLY Consult reason:: Chest pain History of Present Illness Admission Date/PCP: 12/29/16 18:17 MILADIS DE LEON MD Patient complains of: Chest pain History of Present Illness: JEN CHRIS is a 51 year old male, with diabetes mellitus as well as hypertension and hyperlipidemia and prior history of NC, last stress test was about 3 years ago came to the emergency room because of 3 months of recurrent chest pain. Pain is located on the left side nonradiating with associated mild shortness of breath. There is no palpitation dizziness nor chills nor fever. Likewise there is no associated cough. No nausea or vomiting as well. It will occur mainly with activity. The patient will stop and eventually the discomfort will resolve. The pain is reproducible on the left chest wall. While doing yard work today, the pain recurred again and this time it was not relieved by rest, the ambulance was called, and was given nitroglycerin the pain started to ease off. The patient was then referred for admission. This history was reviewed, confirmed. Patient gives questionable history of leukemia having had chemotherapy in the past. Patient denied any history of blood clots in the legs are in the lungs. Patient did not want to identify a surrogate decision maker but could contact his live-in girlfriend. Past Medical History Cardiac Medical History: Reports: Myocardial Infarction, Hyperlipidema, Hypertension Neurological Medical History: Reports: Seizures Endocrine Medical History: Reports: Diabetes Mellitus Type 2 Psychiatric Medical History: Reports: Depression Past Surgical History Past Surgical History: Reports: Cholecystectomy, Orthopedic Surgery - right knee , left foot, back Social History Information Source: Patient Lives with: Family Smoking Status: Current Every Day Smoker Frequency of Alcohol Use: None Hx Recreational Drug Use: No Drugs: None Hx Prescription Drug Abuse: No - Advance Directive Resuscitation Status: Full Code Surrogate healthcare decision maker:: Patient children will be surrogate decision-maker although he did not want to identify any of them Family History Family History: DM, Hypertension Parental Family History Reviewed: Yes Children Family History Reviewed: Yes Sibling(s) Family History Reviewed.: Yes Medication/Allergy Home Medications: Aspirin [Aspirin 81 mg Chewable Tablet] 81 mg PO DAILY 12/29/16 Atorvastatin Calcium [Lipitor 10 mg Tablet] 10 mg PO DAILY 12/29/16 Carvedilol [Coreg 6.25 mg Tablet] 6.25 mg PO Q12 12/29/16 Divalproex Sodium [Depakote ER] 500 mg PO DAILY 12/29/16 Escitalopram Oxalate [Lexapro 10 mg Tablet] 10 mg PO DAILY 12/29/16 Insulin Detemir [Levemir Flextouch] 18 unit SQ QHS 12/29/16 Insulin Lispro [Humalog Kwikpen U-100] 6 unit SQ DAILY 12/29/16 Isosorbide Mononitrate [Isosorbide Mononitrate ER] 30 mg PO DAILY 12/29/16 Lacosamide [Vimpat] 200 mg PO Q12 12/29/16 Lisinopril [Prinivil 10 mg Tablet] 10 mg PO DAILY 12/29/16 Nitroglycerin [Nitrostat 0.4 mg (1/150 Gr) Tabs 25/Bottle] 1 tab SL Q5MP PRN Apixaban [Eliquis 5 mg Tablet] 5 mg PO Q12 #60 tablet 12/30/16 Allergies/Adverse Reactions: hydrocodone bitartrate [From Vicodin] Allergy (Verified 11/05/16 17:08) Penicillins Allergy (Verified 11/05/16 17:08) Review of Systems Review of Systems: Please see history of present illness and past medical history as wall. Constitutional: No fever or chills reported. Head : No recent chronic headaches, recent head injury. Eyes: No recent eye pain, diplopia, redness, discharge, acute visual changes. Ears: No recent chronic ear pain, acute hearing loss, ear discharge. Oral cavity: No recent ulcerations, bleeding, oral cavity discomfort. Neck: No recent acute neck pain reported. Hematologic: No recent easy bruising or bleeding or hematologic malignancy reported. Lymphatic: No recent lymphatic malignancy, chronic lymphadenopathy reported yet Cardiovascular system review: See history of present illness. Respiratory system review: No recent chronic cough, hemoptysis, blood clots in the lungs reported. Mild Shortness of breath on exertion Gastrointestinal system review: Negative for any recent acute or chronic abdominal pain, hematemesis, melena, recent change in bowel habits. Genitourinary system review: No recent acute or chronic hematuria, flank pain, UTI etc. reported. Skin system review: Negative for any recent abnormal bruising, no rash, no pruritus reported. Neurologic: No prior history of strokes, mini strokes, seizure disorder. Claims tremors of the left hand. Psychologic: No history of major psychosis or major depression reported. Musculoskeletal: Minor aches and pains reported. No acute joint swelling reported. Describes significant right hip and right knee arthritis. Patient walks with a cane Endocrine: No recent polyuria, polydipsia, recent heat or cold intolerance. Physical Exam Vital Signs: Temp Pulse Resp BP Pulse Ox 98 F 98 15 129/92 H 95 12/29/16 15:21 12/29/16 15:21 12/29/16 19:07 12/29/16 19:07 12/29/16 15:27 Exam: GENERAL: well-nourished and in no acute distress. Alert and oriented x3 HEAD: Atraumatic, normocephalic. EYES: Pupils equal round and reactive to light, extraocular movements intact, sclera anicteric, conjunctiva are normal. ENT: TMs normal, nares patent, oropharynx clear without exudates. Moist mucous membranes. No oral ulcerations or bleeding gums noted NECK: supple without lymphadenopathy. Trachea is central. No cervical or axillary lymphadenopathy noted. Carotids are 2+, JVD WNL LUNGS: Respiration seems nonlabored, no significant accessory muscle action noted. Breath sounds clear to auscultation bilaterally and equal noted. No wheezes rales or rhonchi noted. No significant dullness noted on percussion. CHEST: Palpation of the chest wall shows significant chest wall tenderness. No other significant abnormalities noted. HEART: [place] [employer], No PSH, 1/6 MARCO aortic area, 1/6 siddiqui systolic murmur mitral area, no rubs, no gallops. ABDOMEN: Soft, no significant tenderness appreciated, normoactive bowel sounds. No guarding, no rebound. No rigidity noted . No masses appreciated. EXTREMITIES: Pedal pulses are 1-2+, no calf tenderness noted. No clubbing or cyanosis.trace to 1+ pedal edema noted NEUROLOGICAL: Focused neurological exam showed no significant neurologic deficit. Normal speech, no focal weakness appreciated. PSYCH: Normal mood, normal affect. Judgment and insight within normal limits. SKIN: No significant ecchymosis, rash, ulcerations or signs of pruritus noted. MUSCULOSKELETAL EXAM: No significant joint swelling noted. Results EKG Comments: Borderline Q waves inferior leads suggestive of possible prior inferior myocardial infarction Impressions: Cervical Spine X-Ray 12/29/16 15:17 IMPRESSION: No acute changes Chest X-Ray 12/29/16 15:17 IMPRESSION: NO SIGNIFICANT RADIOGRAPHIC FINDING IN THE CHEST. Assessment & Plan - Diagnosis (1) Chest pain Qualifiers: Chest pain type: unspecified Qualified Code(s): R07.9 - Chest pain, unspecified Is this a current diagnosis for this admission?: Yes (2) Coronary artery disease Qualifiers: Coronary Disease-Associated Artery/Lesion type: [place] artery [place] vs. transplanted heart: [place] heart Associated angina: angina presence unspecified Qualified Code(s): I25.10 - Atherosclerotic heart disease of [place] coronary artery without angina pectoris Is this a current diagnosis for this admission?: Yes (3) Diabetes mellitus type 2 in obese Is this a current diagnosis for this admission?: Yes (4) Essential hypertension Is this a current diagnosis for this admission?: Yes (5) HLD (hyperlipidemia) Qualifiers: Hyperlipidemia type: unspecified Qualified Code(s): E78.5 - Hyperlipidemia , unspecified Is this a current diagnosis for this admission?: Yes - Notes Notes: Nuclear stress test and 2D echo. Patient's medication reviewed. Agree with current management plans. Chest pain: Patient has some typical and atypical features of chest pain. Cardiac enzymes so far has been negative. Electrocardiogram did not show any definitive ST segment changes. Multiple differential diagnoses exist in this patient. In descending order of probability this includes underlying coronary artery disease, gastroesophageal reflux, musculoskeletal pain, referred pain from elsewhere, anxiety panic disorder etc.Patient has significant cardiac risk factors, which indicates that there is a intermediate probability of chest discomfort coming from underlying CAD. Feel that it would need to be evaluated further. Discussed evaluation to assess this. In this regard risk benefits of nuclear stress test and other alternative processes were discussed in detail. The patient prefers to undergo nuclear stress test. The small risk of radiation , myocardial infarction, , cardiac arrhythmias, respiratory distress etc. were discussed. Patient understood the risks and gave informed consent. Nuclear stress test was therefore scheduled. For risk evaluation, patient is also being scheduled for a 2-D echocardiogram. Patient questions were answered. CAD: Patient describes prior history of myocardial infarction. To be evaluated further with a nuclear stress test and a 2D echocardiogram. Diabetes: Recommend good control of blood sugar. However should avoid any hypoglycemia. Patient being expertly managed by primary care MMario Hypertension: Reasonably well controlled. Blood pressure goal in this patient is 135/85 or less. This was discussed with the patient. Currently blood pressure under reasonable control. Better medication for this patient are CINDY inhibitor/ARB/beta lev etc. discussed side effects of uncontrolled hypertension and also severe hypotension. Hyperlipidemia: LDL goal is less than 70. Recommend statin therapy at least intermediate or high dose, of high potency status. Periodic lipid panel and liver panel is indicated. Patient to report any significant muscle discomfort or other side effects. - Time Time Spent: 50 to 70 Minutes - CODE STATUS was discussed, patient remains full code. Surrogate decision-maker not definitely identified by the patient. Multiple medical problems were addressed. More than 50% of the time spent coordinating care, discussing management plans with involved caregivers. Management plans discussed with involved personnels. Medical decision making was of moderate to high complexity, patient's has multiple comorbidities. Medications reviewed and adjusted accordingly: Yes
[2016-12-29] MEDS ORDERED: ASPIRIN 81 MG TABLET, CHEWABLE PO ONE (20:00)
[2016-12-29 20:16] LABS: CHOLESTEROL 222.43 mg/dL (0-200); Direct HDL 30 mg/dL (>40); TRIGLYCERIDES 244 mg/dL (<150)
[2016-12-29 20:27] LABS: DIRECT LDL 166 mg/dL (<100)
[2016-12-29 20:28] LABS: CREATINE KINASE MB 0.86 ng/mL (<4.55); TROPONIN I 0.041 ng/mL
[2016-12-29 20:33] LABS: VLDL CHOLESTEROL 48.8 mg/dL (10-31)
[2016-12-29] MEDS ORDERED: ENOXAPARIN SODIUM INJ 40 MG/0.4 ML DISP.SYRIN SUBCUT ONE (21:00)
[2016-12-30] MEDS: NITROGLYCERIN 2% OINTMENT 1 GM PACKET TP SCH ×4 (00:15→17:43)
[2016-12-30 00:34] LABS: CREATINE KINASE MB 0.86 ng/mL (<4.55); TROPONIN I 0.025 ng/mL
[2016-12-30] MEDS ORDERED: LANSOPRAZOLE 30 MG TAB.RAP.DR PO SCH (06:00)
--- NOTE | 2016-12-30 07:19 | EKG REPORT ---
SEVERITY:- ABNORMAL ECG - SINUS RHYTHM BORDERLINE IVCD WITH LAD PROBABLE INFERIOR INFARCT, AGE INDETERMINATE : Confirmed by: Pradip Chapman MD 30-Dec-2016 07:18:31
[2016-12-30] MEDS ORDERED: CLOPIDOGREL BISULFATE 75 MG TABLET PO SCH (10:00)
[2016-12-30] MEDS ORDERED: ENOXAPARIN SODIUM INJ 40 MG/0.4 ML DISP.SYRIN SUBCUT SCH (10:00)
[2016-12-30] MEDS ORDERED: ASPIRIN 81 MG TABLET, CHEWABLE PO SCH (10:00)
[2016-12-30] MEDS: DOCUSATE SODIUM 100 MG CAPSULE PO SCH ×2 (10:48→17:43)
--- NOTE | 2016-12-30 11:24 | XCELERA REPORT ---
[address] [address] Transthoracic Echocardiogram Report Name: JEN CHRIS Age: 51 yrs Gender: Male : 1965 Patient Status: Inpatient Patient Location: [address] [place] [address] Study Date: 12/30/2016 08:35 AM Height: 67 in Weight: 190 lb BSA: 2.0 m2 Procedure: A complete two-dimensional transthoracic echocardiogram was performed (2D, M-mode, spectral and color flow Doppler). The study was technically adequate with some images being suboptimal in quality. Reason For Study: CP Ordering Physician: ALBERTO ORELLANA Performed By: Kizzy Flor Interpretation Summary LV EF is 50% Left ventricular systolic function is borderline reduced. There is mild concentric left ventricular hypertrophy. Doppler measurements suggest impaired left ventricular relaxation, which is associated with grade I/IV or mild diastolic dysfunction The left ventricle is grossly normal size. There is basal posterior wall akinesis The right ventricular systolic function is normal. The left atrial size is normal. The right atrium is normal in size There is a trace to mild amount of mitral regurgitation There is no mitral valve stenosis. No aortic regurgitation is present. There is no aortic valve stenosis There is a trace or physiologic amount of tricuspid regurgitation Tricuspid regurgitation jet envelope not well defined to measure RV systolic pressure accurately. The aortic root is not well visualized but is probably normal size. The inferior vena cava appeared normal and decreased > 50% with respiration (RAP 5-10 mmHg) Minimal pericardial effusion. MMode/2D Measurements & Calculations RVDd: 3.2 cm LVIDd: 5.0 cm FS: 22.3 % Ao root diam: IVSd: 0.99 cm LVIDs: 3.9 cm EDV(Teich): 3.0 cm LVPWd: 1.0 cm 116.7 ml Ao root area: ESV(Teich): 64.5 ml 7.3 cm2 EF(Teich): 44.7 % LA dimension: 2.9 cm LVLd ap4: 9.5 cm SV(MOD-sp4): EDV(MOD-sp4): 74.0 ml 154.0 ml LVLs ap4: 8.2 cm ESV(MOD-sp4): 80.0 ml EF(MOD-sp4): 48.1 % Doppler Measurements & Calculations MV E max jean: MV P1/2t max jean: Ao V2 max: LV V1 max P.9 cm/sec 84.9 cm/sec 136.3 cm/sec 4.7 mmHg MV A max jean: MV P1/2t: 73.0 msec Ao max PG: LV V1 max: 104.6 cm/sec MVA(P1/2t): 3.0 cm2 7.4 mmHg 108.1 cm/sec MV E/A: 0.81 MV dec slope: 340.4 cm/sec2 MV dec time: 0.23 sec PA V2 max: TR max jean: 90.3 cm/sec 237.8 cm/sec PA max P.3 mmHgTR max P.6 mmHg Left Ventricle The left ventricle is grossly normal size. There is mild concentric left ventricular hypertrophy. Left ventricular systolic function is borderline reduced. LV EF is 50%. Doppler measurements suggest impaired left ventricular relaxation, which is associated with grade I/IV or mild diastolic dysfunction. There is basal posterior wall akinesis. Right Ventricle The right ventricle is grossly normal size. There is normal right ventricular wall thickness. The right ventricular systolic function is normal. Atria The right atrium is normal in size. The left atrial size is normal. Interarterial septum not well visualized and not well dopplered. Cannot comment on ASD/PFO presence. Mitral Valve The mitral valve is grossly normal. There is no mitral valve stenosis. There is a trace to mild amount of mitral regurgitation. Aortic Valve The aortic valve is grossly normal. There is no aortic valve stenosis. No aortic regurgitation is present. Tricuspid Valve The tricuspid valve is not well visualized, but is grossly normal. There is a trace or physiologic amount of tricuspid regurgitation. Tricuspid regurgitation jet envelope not well defined to measure RV systolic pressure accurately. Pulmonic Valve The pulmonic valve is not well visualized. Great Vessels The aortic root is not well visualized but is probably normal size. The inferior vena cava appeared normal and decreased > 50% with respiration (RAP 5-10 mmHg). Effusions Minimal pericardial effusion. : ALBERTO ORELLANA > Alberto Orellana
[2016-12-30] MEDS ORDERED: AMINOPHYLLINE INJ/PF 250 MG/10 ML SDV IV ONE (11:25)
[2016-12-30] MEDS ORDERED: REGADENOSON INJ 0.4 MG/5 ML DISP.SYRIN IV ONE (11:25)
--- NOTE | 2016-12-30 12:12 | DRAGON STRESS TEST REPORT ---
INTRAVENOUS LEXISCAN CARDIOLITE STRESS TEST USING SINGLE PHOTON EMMISION COMPUTERIZED TOMOGRAPHIC. DATE OF PROCEDURE: December 30, 2016 INDICATION : Chest pain CARDIAC RISK FACTORS: Diabetes, hypertension, dyslipidemia, tobacco abuse RESTING EKG: Sinus rhythm, no baseline ST-T wave changes noted STRESS EKG: No significant changes noted with LexiScan bolus REASON FOR TERMINATION: Protocol. PROCEDURE REPORT: Baseline heart rate 80 beats per minute with blood pressure of 125/82. Patient had no significant complaints. Heart rate at 2 minutes post bolus 104 with a blood pressure of 136/86. 3 minutes post bolus heart rate 97 with blood pressure of 143/90. No significant EKG changes were noted. Patient had no significant complaints during the procedure or postprocedure. Patient injected with Aminophyllin 75 mg at 3 minutes or later after Lexiscan bolus. CONCLUSIONS: Normal EKG and hemodynamic response to IV LexiScan. NUCLEAR DATA: At rest the patient was given 13.30 millicuries of technetium 99 sestamibi injected intravenously. As per protocol rest gated SPECT images were obtained. Subsequently the patient was given intravenous LexiScan at a dose of 0.4 mg in 5 mL intravenously, followed by flush with normal saline. Subsequently the stress dose of 40.7 millicuries of technetium 99 sestamibi was injected intravenously. As per protocol stress gated images were obtained. NUCLEAR INTERPRETATION: Both raw and processed data were used for interpretation. Visual, qualitative, computer-generated quantitative data was used. There was good myocardial uptake of technetium compound. Motion artifact and soft tissue attenuations were noted. Increased visceral uptake was noted. No definitive areas of transient perfusion defect noted. Small area of severe fixed defect noted involving the basal inferior wall. EKG gated imaging showed LV EF at 30 %, rest and stress gated EF similar visually but better. T. I D. ratio was 1.08. Lung heart ratio noted to be within normal limits 0.39. No significant extracardiac and abnormal radiotracer activities were noted. RV free wall uptake was noted to be borderline increased. IMPRESSION: Also refer to comments under nuclear interpretation. Also test results needs to be interpreted in the context of pretest probability. 1. There is no definitive scintigraphic evidence of LexiScan induced myocardial ischemia. 2. There is scintigraphic evidence of myocardial infarction/scar, involving the basal inferior wall. 3. EKG gated imaging shows left ventricular ejection fraction of approximately 30 %, but visually seems better. 4. Clinical correlation requested as occasionally single vessel disease or balanced ischemia could be missed. In approximately 10% of the cases Lexiscan may not cause adequate vasodilatory stress. RECOMMENDATIONS: Aggressive risk factor modification, medical therapy. Clinical correlation with echocardiogram derived ejection fraction. Inability to exercise by itself can lead to increased cardiovascular event risks. Consider cardiology consultation and or follow-up if clinically indicated. I AM AVAILABLE FOR CARDIOLOGY CONSULTATION AND FOLLOWUP IF REQUESTED BY PMD Alberto Ortez M.D., KATIE Operating Room Technician order processing clerk, Board certified in cardiovascular diseases, Nuclear cardiology, Echocardiography Cardiac CT and cardiac MRI Ph. [phone] [facility]ITALZig[facility]
[2016-12-30] MEDS: INSULIN REG, HUMAN 100 UNIT/ML 3 ML VIAL (PYX) SUBCUT PRN ×2 (13:15→16:53)
--- NOTE | 2016-12-30 14:22 | RADIOLOGY REPORT (SQ) ---
EXAM DESCRIPTION: CTA CHEST COMPLETED DATE/TIME: 12/30/2016 1:08 pm REASON FOR STUDY: CP R07.9 CHEST PAIN, UNSPECIFIED COMPARISON: None. TECHNIQUE: CT scan of the chest performed using helical scanning technique with dynamic intravenous contrast injection. Images reviewed with lung, soft tissue and bone windows. Reconstructed coronal and sagittal MPR images reviewed. Additional 3 dimensional post-processing performed to develop Maximal Intensity Projection images (UT P). All images stored on PACS. All CT scanners at this facility use dose modulation, iterative reconstruction, and/or weight based d osing when appropriate to reduce radiation dose to as low as reasonably achievable (ALARA). [facility]: Dose Right [facility]: CareDose [facility]: Dose Right [facility]: Teradose 4D [facility]: NXTM CONTRAST TYPE AND DOSE: contrast/concentration: Isovue 370.00 mg/ml; Total Contrast Delivered: 67.0 ml; Total Saline Delivered: 104.1 ml Contrast bolus optimized for the pulmonary arteries. Not diagnostic for the aorta. RENAL FUNCTION: Creatinine 0.6 BUN 11 RADIATION DOSE: Up-to-date CT equipment and radiation dose reduction techniques were employed. CTDIv ol: 12.4 - 16.9 mGy. DLP: 470 mGy-cm. . LIMITATIONS: None. FINDINGS: LUNGS AND PLEURA: No masses, infiltrates, pneumothorax. No pleural effusions, calcificati ons. AORTA AND GREAT VESSELS: No aneurysm. Contrast bolus not optimized for the aorta. HEART: No pericardial effusion. Moderate to marked coronary artery calcifications. PULMONARY ARTERIES: No emboli visualized in the main pulmonary arteries or the segmental branches. HILAR AND MEDIASTINAL STRUCTURES: No identified masses or abnormal nodes. HARDWARE: None in the chest. UPPER ABDOMEN: No significant findings. Limited exam. THYROID AND OTHER SOFT TISSUES: No masses. No adenopathy. BONES: No acute or significant finding. 3D MIPS: Confirm above findings. OTHER: There appears to be thrombus in the superior vena cava. IMPRESSION: 1. There is no evidence of pulmonary embolus. 2. 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 COMMENT: Quality ID # [id number]: Final reports with documentation of one or more dose reduction techniques (e.g., Automated exposure control, adjustment of the mA and/or kV according to patient size, use of iterative reconstruction technique) TECHNICAL DOCUMENTATION: JOB ID: [id number]- All Rights Reserved
[2016-12-30 17:25] VITALS: BP 119/74
--- NOTE | 2016-12-30 18:13 | PDOC CONSULTATION ---
Consultation Consult Date: 12/30/16 Attending physician:: TITO CONNELLY Consult reason:: Newly noted SVC thrombosis, history of leukemia History of Present Illness Admission Date/PCP: 12/29/16 18:15 MILADIS DE LEON MD Patient complains of: L eft chest pain History of Present Illness: 51-year-old male with known history of leukemia. He apparently was originally diagnosed in 2012, he also has apparently seen us in clinic but have not had a chance to review our records, it sounds like he was diagnosed with either AML or ALL, was treated at [facility] in [place], it sounds like he had induction chemotherapy followed by consolidation treatment, this was completed in 06/2013. He comes with a 4 month history of left-sided chest pain, he had a full cardiac workup and was ruled out for LA, stress test was negative, echocardiogram was negative for any wall motion abnormality. He did have a CTA of the chest done, and this actually indicates SVC thrombosis. When he was treated with leukemia, he did have a PICC line in the left upper extremity, but he never had a Port-A-Cath or Jean catheter in the right chest. Past Medical History Cardiac Medical History: Reports: Myocardial Infarction, Hyperlipidema, Hypertension Neurological Medical History: Reports: Seizures Endocrine Medical History: Reports: Diabetes Mellitus Type 2 Malignancy Medical History: Reports: Leukemia Psychiatric Medical History: Reports: Depression Past Surgical History Past Surgical History: Reports: Cholecystectomy, Orthopedic Surgery - right knee , left foot, back Social History Lives with: Family Smoking Status: Current Every Day Smoker Frequency of Alcohol Use: None Hx Recreational Drug Use: No Drugs: None Hx Prescription Drug Abuse: No - Advance Directive Resuscitation Status: Full Code Family History Family History: DM, Hypertension Parental Family History Reviewed: Yes Children Family History Reviewed: Yes Sibling(s) Family History Reviewed.: Yes Medication/Allergy Home Medications: Aspirin [Aspirin 81 mg Chewable Tablet] 81 mg PO DAILY 12/29/16 Atorvastatin Calcium [Lipitor 10 mg Tablet] 10 mg PO DAILY 12/29/16 Carvedilol [Coreg 6.25 mg Tablet] 6.25 mg PO Q12 12/29/16 Divalproex Sodium [Depakote ER] 500 mg PO DAILY 12/29/16 Escitalopram Oxalate [Lexapro 10 mg Tablet] 10 mg PO DAILY 12/29/16 Insulin Detemir [Levemir Flextouch] 18 unit SQ QHS 12/29/16 Insulin Lispro [Humalog Kwikpen U-100] 6 unit SQ DAILY 12/29/16 Isosorbide Mononitrate [Isosorbide Mononitrate ER] 30 mg PO DAILY 12/29/16 Lacosamide [Vimpat] 200 mg PO Q12 12/29/16 Lisinopril [Prinivil 10 mg Tablet] 10 mg PO DAILY 12/29/16 Nitroglycerin [Nitrostat 0.4 mg (1/150 Gr) Tabs 25/Bottle] 1 tab SL Q5MP PRN Apixaban [Eliquis 5 mg Tablet] 5 mg PO Q12 #60 tablet 12/30/16 Allergies/Adverse Reactions: hydrocodone bitartrate [From Vicodin] Allergy (Verified 11/05/16 17:08) Penicillins Allergy (Verified 11/05/16 17:08) Review of Systems Constitutional: ABSENT: chills, fever(s), headache(s), weight gain, weight loss Eyes: ABSENT: visual disturbances Ears: ABSENT: hearing changes Cardiovascular: PRESENT: chest pain Respiratory: ABSENT: cough, hemoptysis Gastrointestinal: ABSENT: abdominal pain, constipation, diarrhea, hematemesis, hematochezia, nausea, vomiting Genitourinary: ABSENT: dysuria, hematuria Musculoskeletal: ABSENT: joint swelling Integumentary: ABSENT: rash, wounds Neurological: ABSENT: abnormal gait, abnormal speech, confusion, dizziness, focal weakness, syncope Psychiatric: ABSENT: anxiety, depression, homidical ideation, suicidal ideation Endocrine: ABSENT: cold intolerance, heat intolerance, polydipsia, polyuria Hematologic/Lymphatic: ABSENT: easy bleeding, easy bruising Physical Exam Vital Signs: Temp Pulse Resp BP Pulse Ox 98.2 F 85 15 119/74 98 12/30/16 16:33 12/30/16 16:33 12/30/16 16:33 12/30/16 16:33 12/30/16 16:33 Intake & Output 12/29/16 12/30/16 12/31/16 06:59 06:59 06:59 Intake Total 150 300 Balance 150 300 Weight 86.18 kg General appearance: PRESENT: no acute distress, well-developed, well-nourished Head exam: PRESENT: atraumatic, normocephalic Eye exam: PRESENT: conjunctiva pink, EOMI, PERRLA. ABSENT: scleral icterus Ear exam: PRESENT: normal external ear exam Mouth exam: PRESENT: moist, tongue midline Neck exam: ABSENT: carotid bruit, JVD, lymphadenopathy, thyromegaly Respiratory exam: PRESENT: clear to auscultation harsh. ABSENT: rales, rhonchi, wheezes Cardiovascular exam: PRESENT: RRR. ABSENT: diastolic murmur, rubs, systolic murmur Pulses: PRESENT: normal dorsalis pedis pul Vascular exam: PRESENT: normal capillary refill GI/Abdominal exam: PRESENT: normal bowel sounds, soft. ABSENT: distended, guarding, mass, organolmegaly, rebound, tenderness Rectal exam: PRESENT: deferred Extremities exam: PRESENT: full ROM. ABSENT: calf tenderness, clubbing, pedal edema Neurological exam: PRESENT: alert, awake, oriented to person, oriented to place , oriented to time, oriented to situation, CN II-XII grossly intact. ABSENT: motor sensory deficit Psychiatric exam: PRESENT: appropriate affect, normal mood. ABSENT: homicidal ideation, suicidal ideation Skin exam: PRESENT: dry, intact, warm. ABSENT: cyanosis, rash Results Laboratory Results: 12/29/16 19:46 Triglycerides 244 H Cholesterol 222.43 H LDL Cholesterol Direct 166 H VLDL Cholesterol 48.8 H HDL Cholesterol 30 L 12/29/16 12/29/16 12/29/16 19:46 19:46 23:55 Creatine Kinase 70 70 CK-MB (CK-2) 0.86 Troponin I 0.041 12/29/16 23:55 Creatine Kinase CK-MB (CK-2) 0.86 Troponin I 0.025 Impressions: Cervical Spine X-Ray 12/29/16 15:17 IMPRESSION: No acute changes Chest X-Ray 12/29/16 15:17 IMPRESSION: NO SIGNIFICANT RADIOGRAPHIC FINDING IN THE CHEST. Chest/Abdomen CTA 12/30/16 12:04 IMPRESSION: 1. There is no evidence of pulmonary embolus. 2. 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 Status: Image reviewed by me Assessment & Plan - Diagnosis (1) SVC obstruction Is this a current diagnosis for this admission?: Yes Plan: Per imaging he does have SVC thrombosis, I really do not know why this is happening, there is no mass effect there, we did a full hypercoagulable workup, we will see him back in clinic to go over this, we recommended discharge with Eliquis 5mg BID . He will see us back in follow-up and we will go overthe results of the hypercoagulable workup and decide next steps of care. (2) Leukemia Qualifiers: Leukemia type: acute, unspecified type Leukemia Active/Remission status: in remission Qualified Code(s): C95.01 - Acute leukemia of unspecified cell type, in remission Is this a current diagnosis for this admission?: Yes Plan: CBC is normal, he would at least be in hematologic remission, we will follow this up as an outpatient, we will make sure we have all the records and monitor accordingly. I do not believe this has anything to do with thrombosis. - Time Time Spent: 50 to 70 Minutes Critical Time spent with patient: 25-34 minutes
--- NOTE | 2016-12-30 18:24 | PDOC DISCHARGE SUMMARY ---
General - Admit/Disc Date/PCP Admission Date/Primary Care Provider: 12/29/16 18:15 MILADIS DE LEON MD Discharge Date: 12/30/16 - Discharge Diagnosis (1) Chest pain Is this a current diagnosis for this admission?: Yes Summary: Probably related to superior vena cava thrombosis. (2) Coronary artery disease Is this a current diagnosis for this admission?: Yes (3) Essential hypertension Is this a current diagnosis for this admission?: Yes (4) Hyperlipidemia Is this a current diagnosis for this admission?: Yes (5) Diabetes mellitus type 2 in obese Is this a current diagnosis for this admission?: Yes (6) History of depression Is this a current diagnosis for this admission?: Yes (7) History of stroke Is this a current diagnosis for this admission?: Yes (8) History of seizure Is this a current diagnosis for this admission?: Yes - Additional Information Resuscitation Status: Full Code Discharge Diet: Cardiac Discharge Activity: Activity As Tolerated, Balance Activity w/Rest Home Medications: Aspirin [Aspirin 81 mg Chewable Tablet] 81 mg PO DAILY 12/29/16 Atorvastatin Calcium [Lipitor 10 mg Tablet] 10 mg PO DAILY 12/29/16 Carvedilol [Coreg 6.25 mg Tablet] 6.25 mg PO Q12 12/29/16 Divalproex Sodium [Depakote ER] 500 mg PO DAILY 12/29/16 Escitalopram Oxalate [Lexapro 10 mg Tablet] 10 mg PO DAILY 12/29/16 Insulin Detemir [Levemir Flextouch] 18 unit SQ QHS 12/29/16 Insulin Lispro [Humalog Kwikpen U-100] 6 unit SQ DAILY 12/29/16 Isosorbide Mononitrate [Isosorbide Mononitrate ER] 30 mg PO DAILY 12/29/16 Lacosamide [Vimpat] 200 mg PO Q12 12/29/16 Lisinopril [Prinivil 10 mg Tablet] 10 mg PO DAILY 12/29/16 Nitroglycerin [Nitrostat 0.4 mg (1/150 Gr) Tabs 25/Bottle] 1 tab SL Q5MP PRN Apixaban [Eliquis 5 mg Tablet] 5 mg PO Q12 #60 tablet 12/30/16 Additional Information: 1. Follow-up hypercoagulable panel outpatient with Dr. Dumas 2. Return to the emergency room if symptoms recur 3. Appointment with primary care physician in 1-2 weeks. 4. Appoint[address] with Dr. Dumas in 1-2 weeks. History of Present Illness Patient complains of: Chest pain History of Present Illness: JEN CHRIS is a 51 year old male, with diabetes mellitus as well as hypertension and hyperlipidemia and prior history of CO last stress test was about 3 years ago came to the emergency room because of 3 months of recurrent chest pain. Pain is located on the left side nonradiating with associated mild shortness of breath. There is no palpitation dizziness nor chills nor fever. Likewise there is no associated cough. No nausea or vomiting as well. It will occur mainly with activity. The patient will stop and eventually the discomfort will resolve. The pain is reproducible on the left chest wall. While doing yard work today, the pain recurred again and this time it was not relieved by rest, the ambulance was called, and was given nitroglycerin the pain started to ease off. The patient was then referred for admission. Hospital Course Hospital Course: The patient was admitted to telemetry. Serial cardiac enzymes were obtained and they were negative for myocardial infarction. The patient was referred to cardiology service. 2D echocardiogram shows a normal ejection fraction. No reported significant wall motion abnormality. Eventually a stress test was obtained and was negative for reversible ischemia. A follow-up workup up CT scan of the chest was obtained showing no pulmonary embolism. His d-dimer was normal. However he was found to have possible thrombus in the superior vena cava close to the right atrium. Hematology was consulted and hypercoagulable panel was obtained including lupus anticoagulant, factor V Leyden, beta-2 glycoprotein antibody, anticardiolipin antibody, anti-thrombin gene antibody. Patient was begun on Eliquis and was cleared for discharge. Patient was informed and agreeable with the plan. The rest of the hospital stays unremarkable. Physical Exam Vital Signs: Temp Pulse Resp BP Pulse Ox 98.2 F 85 15 119/74 98 12/30/16 16:33 12/30/16 16:33 12/30/16 16:33 12/30/16 16:33 12/30/16 16:33 Intake & Output 12/29/16 12/30/16 12/31/16 06:59 06:59 06:59 Intake Total 150 300 Balance 150 300 Weight 86.18 kg General appearance: PRESENT: no acute distress, cooperative Head exam: PRESENT: normocephalic Eye exam: PRESENT: EOMI Mouth exam: PRESENT: moist, neck supple Neck exam: ABSENT: JVD Respiratory exam: PRESENT: clear to auscultation harsh Cardiovascular exam: PRESENT: RRR. ABSENT: gallop GI/Abdominal exam: PRESENT: soft. ABSENT: distended, tenderness Extremities exam: ABSENT: pedal edema Neurological exam: PRESENT: alert, awake, oriented to situation Skin exam: PRESENT: dry, warm. ABSENT: cyanosis Results Laboratory Results: 12/29/16 19:46 Triglycerides 244 H Cholesterol 222.43 H LDL Cholesterol Direct 166 H VLDL Cholesterol 48.8 H HDL Cholesterol 30 L 12/29/16 12/29/16 12/29/16 19:46 19:46 23:55 Creatine Kinase 70 70 CK-MB (CK-2) 0.86 Troponin I 0.041 12/29/16 23:55 Creatine Kinase CK-MB (CK-2) 0.86 Troponin I 0.025 Impressions: Cervical Spine X-Ray 12/29/16 15:17 IMPRESSION: No acute changes Chest X-Ray 12/29/16 15:17 IMPRESSION: NO SIGNIFICANT RADIOGRAPHIC FINDING IN THE CHEST. Chest/Abdomen CTA 12/30/16 12:04 IMPRESSION: 1. There is no evidence of pulmonary embolus. 2. 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 Qualifiers PATEINT BEING DISCHARGED WITH ANY OF THE FOLLOWING DIAGNOSIS?: No Plan Discharge Plan: Follow-up with primary care physician in 1-2 weeks. Follow-up with Dr. Dumas in 1-2 weeks. Time Spent: Less than 30 Minutes
[2016-12-30] MEDS ORDERED: APIXABAN 5 MG TABLET PO ONE (19:00)
--- NOTE | 2016-12-30 19:17 | PDOC PROGRESS REPORT ---
Subjective Progress Note for:: 12/30/16 Subjective:: Patient seems to be doing better with gradual improvement. Pt is denying any chest arm or neck discomfort. Patient denying any PND, orthopnea. Patient denied any sustained palpitations, dizziness, syncope, near syncope. Patient denying any fever chills. Patient denying any other significant discomfort. Patient is maintaining sinus rhythm. Review of systems: Rest review of systems negative. Medications: Medications have been reviewed. Physical Exam Vital Signs: Temp Pulse Resp BP Pulse Ox 98.2 F 85 15 119/74 98 12/30/16 16:33 12/30/16 16:33 12/30/16 16:33 12/30/16 16:33 12/30/16 16:33 Intake & Output 12/29/16 12/30/16 12/31/16 06:59 06:59 06:59 Intake Total 150 300 Balance 150 300 Weight 86.18 kg Exam: GENERAL: well-nourished and in no acute distress. Alert and oriented x3 HEAD: Atraumatic, normocephalic. EYES: Pupils equal round and reactive to light, extraocular movements intact, sclera anicteric, conjunctiva are normal. ENT: TMs normal, nares patent, oropharynx clear without exudates. Moist mucous membranes. No oral ulcerations or bleeding gums noted NECK: supple without lymphadenopathy. Trachea is central. No cervical or axillary lymphadenopathy noted. Carotids are 2+, JVD WNL LUNGS: Respiration seems nonlabored, no significant accessory muscle action noted. Breath sounds clear to auscultation bilaterally and equal noted. No wheezes rales or rhonchi noted. No significant dullness noted on percussion. CHEST: Palpation of the chest wall shows no significant chest wall tenderness. No other significant abnormalities noted. HEART: [place] [employer] [employer], No PSH, 1/6 MARCO aortic area, 1/6 siddiqui systolic murmur mitral area, no rubs, no gallops. ABDOMEN: Soft, no significant tenderness appreciated, normoactive bowel sounds. No guarding, no rebound. No rigidity noted . No masses appreciated. EXTREMITIES: Pedal pulses are 1-2+, no calf tenderness noted. No clubbing or cyanosis. trace pedal edema noted NEUROLOGICAL: Focused neurological exam showed no significant neurologic deficit. Normal speech, no focal weakness appreciated. PSYCH: Normal mood, normal affect. Judgment and insight within normal limits. SKIN: No significant ecchymosis, rash, ulcerations or signs of pruritus noted. MUSCULOSKELETAL EXAM: No significant joint swelling noted. Results Laboratory Results: 12/29/16 19:46 Triglycerides 244 H Cholesterol 222.43 H LDL Cholesterol Direct 166 H VLDL Cholesterol 48.8 H HDL Cholesterol 30 L 12/29/16 12/29/16 12/29/16 19:46 19:46 23:55 Creatine Kinase 70 70 CK-MB (CK-2) 0.86 Troponin I 0.041 12/29/16 23:55 Creatine Kinase CK-MB (CK-2) 0.86 Troponin I 0.025 Impressions: Cervical Spine X-Ray 12/29/16 15:17 IMPRESSION: No acute changes Chest X-Ray 12/29/16 15:17 IMPRESSION: NO SIGNIFICANT RADIOGRAPHIC FINDING IN THE CHEST. Chest/Abdomen CTA 12/30/16 12:04 IMPRESSION: 1. There is no evidence of pulmonary embolus. 2. 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 Assessment & Plan - Diagnosis (1) Chest pain Qualifiers: Chest pain type: unspecified Qualified Code(s): R07.9 - Chest pain, unspecified Is this a current diagnosis for this admission?: Yes (2) Coronary artery disease Qualifiers: Coronary Disease-Associated Artery/Lesion type: [place] artery [place] vs. transplanted heart: [place] heart Associated angina: angina presence unspecified Qualified Code(s): I25.10 - Atherosclerotic heart disease of [place] coronary artery without angina pectoris Is this a current diagnosis for this admission?: Yes (3) Diabetes mellitus type 2 in obese Is this a current diagnosis for this admission?: Yes (4) Essential hypertension Is this a current diagnosis for this admission?: Yes (5) HLD (hyperlipidemia) Qualifiers: Hyperlipidemia type: unspecified Qualified Code(s): E78.5 - Hyperlipidemia , unspecified Is this a current diagnosis for this admission?: Yes - Notes Notes: Chest pain: Nuclear stress test results were discussed. It showed mainly a fixed defect in the inferior wall. No other high risk features were noted. The stress test results were discussed with the patient. Medical management is being recommended. Feel that patient will benefit from a CTA of the chest just to get an idea of any significant calcification and also look at the RV size. CAD: Patient describes prior history of myocardial infarction. 2D echo results are's mildly depressed LVEF. Nuclear stress test showed scar in the inferior myocardium. Patient to be treated with very aggressive risk factor modification and medical management. Patient informed that cardiac catheterization would be considered if medical therapy fails or other high risk features appear. Diabetes: Recommend good control of blood sugar. However should avoid any hypoglycemia. Patient being expertly managed by primary care MMario Hypertension: Reasonably well controlled. Blood pressure goal in this patient is 135/85 or less. This was discussed with the patient. Currently blood pressure under reasonable control. Better medication for this patient are CINDY inhibitor/ARB/beta lev etc. discussed side effects of uncontrolled hypertension and also severe hypotension. Hyperlipidemia: LDL goal is less than 70. Recommend statin therapy at least intermediate or high dose, of high potency status. Periodic lipid panel and liver panel is indicated. Patient to report any significant muscle discomfort or other side effects. - Time Time with patient: Greater than 35 minutes - Cardiac evaluations were discussed with the patient and hospitalist. It is felt that patient should be safe for discharge from cardiac standpoint. Approximately 40 minutes spent discussing risk factor modification and management plans with the patient. He has been offered follow-up in my office. CODE STATUS was discussed, patient remains full code. Surrogate decision-maker unchanged. Multiple medical problems were addressed. More than 50% of the time spent coordinating care, discussing management plans with involved caregivers. Management plans discussed with involved personnels. Medical decision making was of moderate to high complexity , patient's has multiple comorbidities. Medications reviewed and adjusted accordingly: Yes
[2016-12-30] MEDS ORDERED: ATORVASTATIN CALCIUM 40 MG TABLET PO SCH (22:00)
[2016-12-31] MEDS ORDERED: APIXABAN 5 MG TABLET PO SCH (10:00)
[2017-01-01 12:36] LABS: PTT-LA 33.9 sec (0.0-51.9); THROMBIN TIME 17.9 sec (0.0-23.0)
[2017-01-02 07:54] LABS: LUPUS PANEL INTERPRETATION Comment: (.)
[2017-01-03 08:13] LABS: BETA-2 GLYCOPROTEIN I IGA AB <9 (0-25)
== END 2016-12-30 20:01 | disposition home or self-care (01) ==
LOC: ER 15:00 → EH 18:15 → UNDOADMOB 18:17 → EH 18:17 → 4N 20:08
DX: R07.89 Other chest pain (principal); I25.10 Atherosclerotic heart disease of native coronary artery without angina pectoris; I10 Essential (primary) hypertension; E78.5 Hyperlipidemia, unspecified; E11.65 Type 2 diabetes mellitus with hyperglycemia; E66.9 Obesity, unspecified; R06.02 Shortness of breath; I25.2 Old myocardial infarction; C95.01 Acute leukemia of unspecified cell type, in remission; R93.1 Abnormal findings on diagnostic imaging of heart and coronary circulation; F32.9 Major depressive disorder, single episode, unspecified; F17.210 Nicotine dependence, cigarettes, uncomplicated; M13.851 Other specified arthritis, right hip; R56.9 Unspecified convulsions; M13.861 Other specified arthritis, right knee; Z86.73 Personal history of transient ischemic attack (TIA), and cerebral infarction without residual deficits; Z79.82 Long term (current) use of aspirin; Z79.4 Long term (current) use of insulin; Z92.21 Personal history of antineoplastic chemotherapy; Z90.49 Acquired absence of other specified parts of digestive tract; Z82.49 Family history of ischemic heart disease and other diseases of the circulatory system
CPT/HCPCS: 93005 ×2; 99285; 81240; 86146; 86147 ×3; 36415 ×2; 82553; 82962; 82550; 85025; 85610; 80053; 84484; 86225; 83520; 86235 ×4; 81241; 85379; 80061; 93306; 93017; 72050; 71020; 78452; 71275; 93010 ×2; G0378 ×2; A9500; J2785; A9270 ×9; J1650 ×2; J3490 ×2; J0280; Q9969; J1815